=== PATIENT | female | born 1995 | race Caucasian/White ===

== ENCOUNTER 2017-10-14 09:13 | Emergency (ER) | payer MEDICAID ==
[~2017-10-14] VITALS: Ht 167.6 cm; Wt 79.4 kg
[2017-10-14 09:20] VITALS: BP 141/80
[2017-10-14] MEDS ORDERED: methylPREDNISolone SOD SUCC 125 MG/2 ML VL IM ONE (10:30)
[2017-10-14] MEDS ORDERED: EPINEPHrine HCL 1 MG/1 ML AMP SC ONE (10:30)
== END 2017-10-14 10:52 | disposition home or self-care (01) ==
LOC: ER 09:23
DX: T78.40XA Allergy, unspecified, initial encounter (principal); L20.9 Atopic dermatitis, unspecified
CPT/HCPCS: 96372; 99284; J0171; J2930

== ENCOUNTER 2020-01-19 18:10 | Emergency (ER) | payer MEDICAID ==
[~2020-01-19] VITALS: Ht 167.6 cm; Wt 77.1 kg
[2020-01-19] MEDS ORDERED: cefTRIAXone SODIUM 250 MG VL IM ONE (20:00)
[2020-01-19] MEDS ORDERED: AZITHROMYCIN 250 MG TAB PO ONE (20:00)
[2020-01-19] MEDS ORDERED: LIDOCAINE 1% HCL (LOCAL ANESTH.) INJ 20ML MDV ID ONE (20:15)
[2020-01-19 21:16] VITALS: BP 146/87
== END 2020-01-19 21:26 | disposition home or self-care (01) ==
LOC: ER 18:10
DX: A54.9 Gonococcal infection, unspecified (principal); N39.0 Urinary tract infection, site not specified; Z20.2 Contact with and (suspected) exposure to infections with a predominantly sexual mode of transmission
CPT/HCPCS: 81002; 81025; 96372; 99284; J0696; J2001